=== PATIENT | female | born 1970 | race Caucasian/White ===

== ENCOUNTER 2017-04-14 19:59 | Emergency (ER) | payer OTHER ==
[~2017-04-14] VITALS: Ht 167.6 cm; Wt 59.0 kg
[2017-04-14 20:41] LABS: INFLUENZA A ANTIGEN None Detected (None Detect); INFLUENZA B ANTIGEN None Detected (None Detect)
[2017-04-14] MEDS ORDERED: PREDNISONE 20 M20 M1 PO (21:00)
[2017-04-14] MEDS ORDERED: PROAIR HFA8.5 GM INH (21:00)
[2017-04-14 21:16] VITALS: BP 96/63
== END 2017-04-14 21:17 | disposition home or self-care (01) ==
LOC: M.ERS 19:59
PROVIDERS: Nurse Practitioner Family
DX: J20.9 Acute bronchitis, unspecified (principal)

== ENCOUNTER 2017-09-08 17:44 | Emergency (ER) | payer OTHER ==
[~2017-09-08] VITALS: Ht 167.6 cm; Wt 61.2 kg
[~2017-09-08 17:44] MED LIST: PREDNISONE 20 M20 M1 PO; PROAIR HFA8.5 GM INH
[2017-09-08] MEDS ORDERED: LEVAQUIN 750 M750 MG PO (18:56)
[2017-09-08] MEDS ORDERED: VENTOLIN HFA 1818 GM INH (18:56)
[2017-09-08] MEDS ORDERED: PREDNISONE50 MG PO (18:56)
[2017-09-08 19:11] VITALS: BP 114/74
== END 2017-09-08 19:11 | disposition home or self-care (01) ==
LOC: M.ERS 17:44
DX: J40 Bronchitis, not specified as acute or chronic (principal)

== ENCOUNTER 2018-08-26 14:16 | Emergency (ER) | payer OTHER ==
[~2018-08-26] VITALS: Ht 167.6 cm; Wt 59.0 kg
[~2018-08-26 14:16] MED LIST changes: +LEVAQUIN 750 M750 MG PO; +PREDNISONE50 MG PO; +VENTOLIN HFA 1818 GM INH
[2018-08-26] MEDS ORDERED: TRAMADOL 50 MG50 MG PO (15:07)
[2018-08-26] MEDS ORDERED: IBUPROFEN 600600 M1 PO (15:07)
[2018-08-26 15:20] VITALS: BP 108/74
== END 2018-08-26 15:21 | disposition home or self-care (01) ==
LOC: M.ERS 14:16
DX: M25.562 Pain in left knee (principal)

== ENCOUNTER 2019-02-07 18:36 | Emergency (ER) | payer OTHER ==
[~2019-02-07] VITALS: Ht 167.6 cm; Wt 59.9 kg
[~2019-02-07 18:36] MED LIST changes: +IBUPROFEN 600600 M1 PO; +TRAMADOL 50 MG50 MG PO
[2019-02-07] MEDS ORDERED: CYCLOBENZAPRINE5 MG PO (19:28)
[2019-02-07] MEDS ORDERED: PREDNISONE 20 M20 M1 PO (19:28)
[2019-02-07] MEDS ORDERED: TORADOL 10 MG T10 MG PO (19:28)
[2019-02-07 19:59] VITALS: BP 108/47
== END 2019-02-07 19:40 | disposition home or self-care (01) ==
LOC: M.ERS 18:36
DX: M25.511 Pain in right shoulder (principal)

== ENCOUNTER 2019-09-04 18:47 | Emergency (ER) | payer OTHER ==
[~2019-09-04] VITALS: Ht 167.6 cm; Wt 61.2 kg
[~2019-09-04 18:47] MED LIST changes: +CYCLOBENZAPRINE5 MG PO; +TORADOL 10 MG T10 MG PO
[2019-09-04] MEDS ORDERED: MEDROLDOSEPACK PO (20:47)
[2019-09-04] MEDS ORDERED: VENTOLIN HFA 1818 GM INH (20:47)
[2019-09-04] MEDS ORDERED: ZPAK PO (20:47)
[2019-09-04 20:53] VITALS: BP 135/75
== END 2019-09-04 20:54 | disposition home or self-care (01) ==
LOC: M.ERS 18:47
DX: J20.9 Acute bronchitis, unspecified (principal); F17.200 Nicotine dependence, unspecified, uncomplicated; Z79.899 Other long term (current) drug therapy